=== PATIENT | male | born 1980 | race Native Hawaiian/Other Pacific Islander ===

== ENCOUNTER 2017-03-24 00:50 | Emergency (ER) | payer SELFPAY ==
[2017-03-24 00:58] VITALS: BMI 26.1
[2017-03-24 01:01] VITALS: RESP 18
--- NOTE | 2017-03-24 01:22 | ED PDOC ---
Arrival/HPI - General Chief Complaint: Alcohol Ingestion Time Seen by Provider: 03/24/17 01:12 Historian: Patient - History of Present Illness Narrative History of Present Illness (Text): 03/24/17 01:19 A 36 year old male, with no significant past medical history, bought in by EMS and police for alcohol intoxication. Patient admits to drinking tonight. Patient was found to be grossly inebriated at home and was argumentative with his family. Patient denies any fevers, chills, nausea, vomiting, diarrhea, dizziness, abdominal pain, or any other complaints. Time/Duration: Other (tonight) Symptom Course: Other Quality: Other Activities at Onset: Rest Context: Home Past Medical History - Provider Review Nursing Documentation Reviewed: Yes - Psychiatric Hx Substance Use: No - Anesthesia Hx Anesthesia: No Family/Social History - Physician Review Nursing Documentation Reviewed: Yes Family/Social History: No Known Family HX Smoking Status: Never Smoked Hx Alcohol Use: Yes Frequency of alcohol use: Socially Hx Substance Use: No Allergies/Home Meds Allergies/Adverse Reactions: Allergies No Known Allergies Allergy (Verified 03/24/17 01:02) Home Medications: Home Meds Medication Instructions Recorded Confirmed No Known Home Med 03/24/17 03/24/17 Review of Systems - Physician Review All systems were reviewed & negative as marked: Yes - Review of Systems Constitutional: absent: Fevers, Night Sweats Gastrointestinal: absent: Abdominal Pain, Diarrhea, Nausea, Vomiting Physical Exam Vital Signs Reviewed: Yes Vital Signs Temp Pulse Resp BP Pulse Ox 03/24/17 01:01 97.7 F 114 H 18 159/107 H 96 Temperature: Afebrile Blood Pressure: Normal Pulse: Regular Respiratory Rate: Normal Appearance: Positive for: Well-Appearing, Non-Toxic, Comfortable Pain Distress: None Mental Status: Positive for: Alert and Oriented X 3 - Systems Exam Head: Present: Atraumatic, Normocephalic Pupils: Present: PERRL Extroacular Muscles: Present: EOMI Conjunctiva: Present: Normal Ears: Present: NORMAL TM Mouth: Present: Moist Mucous Membranes Pharnyx: Present: Normal Neck: Present: Normal Range of Motion Respiratory/Chest: Present: Clear to Auscultation, Good Air Exchange. No: Respiratory Distress, Accessory Muscle Use Cardiovascular: Present: Regular Rate and Rhythm, Normal S1, S2. No: Murmurs Abdomen: Present: Normal Bowel Sounds. No: Tenderness, Distention, Peritoneal Signs Back: Present: Normal Inspection Upper Extremity: Present: Normal Inspection. No: Cyanosis, Edema Lower Extremity: Present: Normal Inspection. No: Edema Neurological: Present: GCS=15, CN II-XII Intact, Speech Normal, Motor Func Grossly Intact, Normal Sensory Function Skin: Present: Warm, Dry, Normal Color. No: Rashes Psychiatric: Present: Alert, Oriented x 3, Normal Insight, Normal Concentration Medical Decision Making ED Course and Treatment: 03/24/17 01:24 Impression: A 36 year old male brought in by EMS for alcohol intoxication tonight. Differential Diagnosis included but are not limited to: Alcohol Abuse Plan: -- Reassess and disposition Progress Notes: 03/24/17 04:00 On re-evaluation, pt is awake, alert, ambulating with steady gait. Clinically sober. Pt stable for d/c home. - Scribe Statement The provider has reviewed the documentation as recorded by the Scribe Mary Manzanares under supervision of Dinah Murdock. Provider Scribe Attestation: All medical record entries made by the Scribe were at my direction and personally dictated by me. I have reviewed the chart and agree that the record accurately reflects my personal performance of the history, physical exam, medical decision making, and the department course for this patient. I have also personally directed, reviewed, and agree with the discharge instructions and disposition. Disposition/Present on Arrival - Present on Arrival Any Indicators Present on Arrival: No History of DVT/PE: No History of Uncontrolled Diabetes: No Urinary Catheter: No History of Decub. Ulcer: No History Surgical Site Infection Following: None - Disposition Have Diagnosis and Disposition been Completed?: Yes Diagnosis: Alcohol abuse Disposition: HOME/ ROUTINE Disposition Time: 03:58 Patient Plan: Discharge Patient Problems: Current Active Problems Problem Status Onset Alcohol abuse Acute Condition: STABLE Discharge Instructions (ExitCare): Abuse of Alcohol (ED) Referrals: Alcoholics Anonymous [Outside] - Follow up with primary Forms: [employer] (Japanese)
[2017-03-24 04:04] VITALS: BP 152/85; PULSE 95; TEMP 98.2; O2SAT 98
== END 2017-03-24 04:04 | disposition home or self-care (01) ==
LOC: ED 00:50
DX: F10.10 Alcohol abuse, uncomplicated (principal); Y90.9 Presence of alcohol in blood, level not specified